=== PATIENT | female | born 1975 | race Hispanic/Latino ===

== ENCOUNTER 2021-04-29 09:46 | Outpatient (CLI) | payer SELFPAY ==
--- NOTE | 2021-05-01 12:09 | Treadmill Report ---
[facility], [place] Test Date: 2021-04-29 Test Time: 08:42:14 Pat Name: NICOLETTE STONE Department: Room: Gender: F Proof Inspector: Negin Patiño : 1975 Requested By: RAJINDER WELCH Order Number: [id number] Reading MD: Bud Bro Interpretive Statements Baseline EKG showed S.R,wnl. Exercised for 6'50" on standard Blake protocol. Attained HR of 171 bpm,92% PMHR. No chest pain. No EKG changes to suggest ischemia. No arrhythmia noted. Appropriate B.P response noted. IMP:Fair exercise tolerance. Negative for angina and ischemia. No arrhthmia. Low risk study. Electronically Signed On 05-01-2021 12:09:30 EST by Bud Bro
== END 2021-04-29 09:47 | disposition home or self-care (01) ==
LOC: CARD 09:46
PROVIDERS: ATTEND Internal Medicine
DX: U07.1 COVID-19 (principal); R06.00 Dyspnea, unspecified; R42 Dizziness and giddiness; R00.2 Palpitations; Z82.49 Family history of ischemic heart disease and other diseases of the circulatory system; Z72.0 Tobacco use
CPT/HCPCS: 93017